=== PATIENT | male | born 1990 | race Native Hawaiian/Other Pacific Islander ===

== ENCOUNTER 2020-03-10 00:40 | Emergency (ER) | payer OTHER ==
[~2020-03-10] VITALS: Ht 182.9 cm; Wt 86.2 kg
[2020-03-10 01:25] VITALS: BP 136/67; TEMP 98.7
== END 2020-03-10 01:25 | disposition home or self-care (01) ==
LOC: ED 00:40
DX: S91.214A Laceration without foreign body of right lesser toe(s) with damage to nail, initial encounter (principal); W45.0XXA Nail entering through skin, initial encounter; Y92.89 Other specified places as the place of occurrence of the external cause
CPT/HCPCS: 99281; 99282